=== PATIENT | male | born 1970 ===

== ENCOUNTER 2023-08-23 14:51 | Outpatient (AMB) | payer OTHER, SELFPAY ==
[2023-08-23 14:56] VITALS: BP 130/78; PULSE 70; RESP 13; TEMP 36.3; O2SAT 99; BMI 43.0
--- NOTE | 2023-08-23 14:56 | MHC.PC.OV ---
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 Patient's states that there are spots on back that may be concerning. Patient is interested in weight loss. Patient states he would like a new Epi-pen prescribed. 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 SurgHx: R 5th fingertip traumatic Amp, R meniscus. FHx: Brother: DM, Dad: CAD, CHF, Mesothelioma. Mom: CAD SocHx:Nonsmoker. EtOH once a week. [facility] Medical History (Updated 08/23/23 @ 16:08 by Baltazar Abarca) History of shingles Swelling Tear meniscus knee Surgical History (Updated 08/23/23 @ 15:08 by Tawana Javier MA) H/O right knee surgery Family History (Updated 08/23/23 @ 15:10 by Tawana Javier MA) Father Cardiovascular disease Alcoholism Mother Cardiovascular disease Family/Other Diabetes Social History Housing: House Patient Tobacco Use Status: Never used Tobacco e-Cigarette/Vaping Use: Never Used service: No Current occupational status: employed Current occupation: [employer] Cognitive needs: No Hearing needs: No Vision needs: No Questionnaire PHQ-9 Over the last 2 weeks, how often have you been bothered by any of the following problems? 1. Little interest or pleasure in doing things: not at all 2. Feeling down, depressed, or hopeless: several days 3. Trouble falling or staying asleep, or sleeping too much: several days 4. Feeling tired or having little energy: several days 5. Poor appetite or overeating: several days 6. Feeling bad about yourself - or that you are a failure or have let yourself or your family down: several days 7. Trouble concentrating on things, such as reading the newspaper or watching television: not at all 8. Moving or speaking so slowly that other people could have noticed. Or the opposite - being so fidgety or restless that you have been moving around a lot more than usual: not at all 9. Thoughts that you would be better off or of hurting yourself in some way: not at all Total score: 5 Depression Screening Interpretation: Positive Depression Screening Done: Yes 62219 - PHQ-9 Billing: Yes Source: Developed by Drs. Eagle Lemus, Reena Villalobos, Jesus Trivedi and colleagues, with an educational temitope from [employer]. Thrive Questionnaire I am a: Patient What is your living situation today?: I have a steady place to live Within the past 12 months, did the food you bought not last and you didn't have the money to get more?: Never true Within the past 12 months, did you worry whether your food would run out before you got money to buy more?: Never true Do you have trouble paying for medicines?: No Do you have trouble getting transportation to medical appointments?: No Do you have trouble paying your heating and electricity bill?: No Do you have trouble taking care of your child, family member or friend?: No Do you have trouble with day-to-day activities such as bathing, preparing meals, shopping, managing finances, etc.?: No Are you currently unemployed and looking for a job?: No Are you interested in more education?: No Please select the resources that you would like help with: None Currently or been in a relationship where the following occur: no concerns reported AUDIT C Alcohol Use Questionnaire (AUDIT-C) 1. How often do you have a drink containing alcohol?: Monthly or less 2. How many drinks containing alcohol do you have on a typical day when you are drinking?: 1 or 2 3. How often do you have six or more drinks on one occasion?: Never Total Score: 1 CABRERA-7 AMB Questionnaire CABRERA-7 Date CABRERA - 7 assessed: 08/23/23 Feeling nervous, anxious, or on edge: 0 = Not at all Not being able to stop or control worryin = Not at all Worrying too much about different things: 0 = Not at all Trouble relaxin = Not at all Being so restless that it is hard to sit still: 0 = Not at all Becoming easily annoyed or irritable: 0 = Not at all Feeling afraid as if something awful might happen: 0 = Not at all Total CABRERA-7 score (0-4 normal; 5-9 mild; 10-14 moderate; 15-21 severe): 0 Source: Developed by Drs. Eagle Lemus, Reena Villalobos, Jesus Trivedi and colleagues, with an educational temitope from [employer]. Review of Systems Const Denies chills, Denies fatigue, Denies fever(s), Denies headache(s) and Denies weakness ENT Denies dizziness and Denies headache(s) Card Denies chest pain, Denies lightheadedness, Denies dyspnea and Denies other (Palpitations) Resp Denies cough, Denies dyspnea, Denies wheezing and Denies other ( shortness of breath) Musc Denies numbness and Denies tingling Neuro Denies dizziness, Denies headache(s), Denies numbness, Denies tingling, Denies paresthesias and Denies weakness Psych Denies anxiety and Denies depression Endo Denies fatigue Aller/Immun Denies wheezing Physical exam (Primary Care) Vital Signs: Last Vital Signs Temp 97.4 F 08/23/23 14:56 Pulse 70 08/23/23 14:56 Resp 13 08/23/23 14:56 BP 130/78 08/23/23 14:56 Pulse Ox 99 08/23/23 14:56 Oxygen Delivery Method Room Air 08/23/23 14:56 BMI result Body Mass Index 43.0 Tobacco/Smoking Status: Tobacco use Status Tobacco use date assessed 08/23/23 08/23/23 15:05 Patient Tobacco Use Status Never used Tobacco 08/23/23 15:05 e-Cigarette/Vaping Use Never Used 08/23/23 15:05 PHQ-9: PHQ-9 Score PHQ-9: Total score 5 08/23/23 15:42 Depression Screening Interpretation: Positive Currently or been in a relationship where the following occur: no concerns reported Const General: no acute distress and well developed Nutritional Appearance: well nourished Orientation/consciousness: patient oriented x3 HENMT Head: Yes normocephalic and Yes atraumatic Eyes General: appearance normal, both eyes and all related structures Pupils: Equal, round and reactive pupils present EOM: EOMs intact bilaterally Resp Effort & Inspection: normal respiratory effort Auscultation: clear to auscultation bilaterally Cardio Rate: regular rate Rhythm: regular rhythm Heart sounds: S1 normal heart sound present, S2 normal heart sound present, no gallops, no murmurs and no rubs Neuro General: patient oriented x3 and gait normal Cranial nerves: Yes Equal, round and reactive pupils present Psych Affect: normal affect Assessment and Plan Assessment & Plan (1) Morbid obesity: Code(s): E66.01 - Morbid (severe) obesity due to excess calories Plan: Will?refer?to?medical?weight?management (2) Sleep apnea: Code(s): G47.30 - Sleep apnea, unspecified Plan: Referred?to?Sleep?Medicine (3) Family history of coronary artery disease: Code(s): Z82.49 - Family history of ischemic heart disease and other diseases of the circulatory system Plan: Strong?family?history?of?coronary?artery?disease Checking?EKG?at?his?next?visit?for?baseline Encouraged?weight?loss Check?lab (4) Neoplasm of uncertain behavior of skin: Code(s): D48.5 - Neoplasm of uncertain behavior of skin Plan: Referred?to?dermatology (5) Screening for colon cancer: Code(s): Z12.11 - Encounter for screening for malignant neoplasm of colon Plan: Patient?had?a?colonoscopy?and?says?he?is?due?for?follow-up Referred?to?GI (6) Laboratory exam ordered as part of routine general medical examination: Code(s): Z00.00 - Encounter for general adult medical examination without abnormal findings Plan: Check?lab Orders: Orders Comprehensive [place]. Panel Fast Today Z00.00 - Encounter for general adult medical examination without abnormal findings Microalbumin, Random (w Creat) Today I10 - Essential (primary) hypertension Lipid Panel Today Z00.00 - Encounter for general adult medical examination without abnormal findings Prostate Specific Antigen Scr Today Z12.5 - Encounter for screening for malignant neoplasm of prostate AMB EKG-In Office Today E66.01 - Morbid (severe) obesity due to excess calories, G47.30 - Sleep apnea, unspecified, Z00.00 - Encounter for general adult medical examination without abnormal findings TSH reflex Free T4 Today Z00.00 - Encounter for general adult medical examination without abnormal findings UA and rflx microscopic Today Z00.00 - Encounter for general adult medical examination without abnormal findings Referrals Sleep Medicine Referral E66.01 - Morbid (severe) obesity due to excess calories, G47.30 - Sleep apnea, unspecified Gastroenterology Referral Z12.11 - Encounter for screening for malignant neoplasm of colon Dermatology Referral D48.5 - Neoplasm of uncertain behavior of skin Medical Weight Management Referral E66.01 - Morbid (severe) obesity due to excess calories Medications: New epinephrine (EpiPen 2-Melvin) 0.3 mg (0.3 mL) IM Q4H 30 days PRN 2 ea 2RF anaphylaxis Coding Level of Care Code New Pt Level 4 (69716) Diagnoses Morbid obesity E66.01 Sleep apnea G47.30 Family history of coronary artery disease Z82.49 Neoplasm of uncertain behavior of skin D48.5 Screening for colon cancer Z12.11 Laboratory exam ordered as part of routine general medical examination Z00.00
== END 2023-08-23 16:14 | disposition home or self-care (01) ==
PROVIDERS: PCP Pediatrics; Visit Provider Family Medicine
DX: G47.30 Sleep apnea, unspecified (principal); E66.01 Morbid (severe) obesity due to excess calories; Z68.41 Body mass index [BMI] 40.0-44.9, adult; Z82.49 Family history of ischemic heart disease and other diseases of the circulatory system; D48.5 Neoplasm of uncertain behavior of skin; Z12.11 Encounter for screening for malignant neoplasm of colon
CPT/HCPCS: 99204

== ENCOUNTER 2023-10-10 07:45 | Outpatient (AMB) | payer OTHER, SELFPAY ==
--- NOTE | 2023-10-10 07:51 | A.OFFVIS_ITS ---
Intake Vital Signs 10/10/23 07:52 Height 5 ft 11 in Weight 306 lb 7.08 oz BMI 42.7 BP 153/73 H Blood Pressure Location Lt brachial Position Sitting Pulse 66 Intake Visit Reasons: Colonoscopy screening Intake Note: Edouard presents in the office as a colonoscopy screening. CC: No concerns today. He states that he got a new PCP that needs new baselines for his care. He is due. Last colo in 5 years. 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 He is referred by Dejon Webb of [facility] [place] [facility]. PMX LINA Morbid obesity History of skin cancer Left knee meniscus tear * SURGICAL HISTORY Right knee meniscus surgery Colonoscopy - 2011, laurie Giron study * ALLERGIES BEE STINGS-ANAPHYLAXIS * EzLike LABS: none in our system TODAY'S VISIT He had a prior scope in [address] Giron that was negative. He denies any bowel or upper GI problems. There are no prior problems with anesthesia or sedation. He has LINA but denies other respiratory problems or cardiac problems. No ID problems. There is no known FHX of CRC or polyps. [facility] Medical History History of shingles Swelling Tear meniscus knee Surgical History Hx of colonoscopy H/O right knee surgery Family History Father Cardiovascular disease Alcoholism Mother Cardiovascular disease Family/Other Diabetes Social History Housing: House Patient Tobacco Use Status: Never used Tobacco e-Cigarette/Vaping Use: Never Used service: No Current occupational status: employed Current occupation: [employer] Cognitive needs: No Hearing needs: No Vision needs: No Review of Systems Const Denies fatigue, Denies fever(s), Denies night sweats, Denies poor appetite and Denies weight loss ENT Reports Normal hearing present, Denies dental pain, Denies dysphagia, Denies hearing loss, Denies mouth pain, Denies odynophagia, Denies throat swelling, Denies tongue swelling and Reports other (Dentition adequate) Card Reports no additional complaints Resp Reports no additional complaints GI Denies abdominal pain, Denies melena, Denies bloating, Denies hematochezia, Denies constipation, Denies GI cramping, Denies dysphagia, Denies excessive flatus, Denies early satiety, Denies heartburn, Denies diarrhea, Denies nausea, Denies odynophagia, Denies vomiting and Denies hematemesis Skin/Breast Denies pruritus, Denies lesions, Denies rash and Denies jaundice Neuro Reports Normal hearing present and Denies Abnormal speech present Endo Denies fatigue Aller/Immun Denies throat swelling and Denies tongue swelling Physical Exam Vital Signs: Last Vital Signs Pulse 66 10/10/23 07:52 BP 153/73 H 10/10/23 07:52 BMI result Body Mass Index 42.7 Const General: cooperative, no acute distress, well developed and well groomed Nutritional Appearance: well nourished and obese Orientation/consciousness: oriented to person, oriented to place and oriented to time Limitations: No language barrier HEENT Head: Yes normocephalic and Yes atraumatic Eyes General: appearance normal, both eyes and all related structures Pupils: Equal, round and reactive pupils present Neck Neck: Yes normal visual inspection and Yes no lymphadenopathy Thyroid: Thyroid normal Resp Effort & Inspection: normal respiratory effort and able to speak in complete sentences Auscultation: clear to auscultation bilaterally Cardio Rate: regular rate Rhythm: regular rhythm Heart sounds: Normal, physiologic split S2 sound present Peripheral pulses: radial pulses present and posterior tibial pulses present GI Inspection: No distended, Yes Abdominal panniculus present and Yes obesity Palpation (GI): Soft to palpation, nontender, no guarding, not rigid and No hepatosplenomegaly present Percussion: Yes normal to percussion Auscultation: normal bowel sounds Rectal Exam - Male: Yes deferred Skin General skin exam: no rashes or lesions noted, turgor normal, skin not dry, no jaundice, No spider nevi and no striae Rashes: no rashes Nails: normal Neuro General: oriented to person, oriented to place and oriented to time Cranial nerves: Yes Equal, round and reactive pupils present and Yes Normal hearing present Speech: No Abnormal speech present Extrem General: Yes normal to inspection, No clubbing, No cyanosis and No edema Psych Appearance: grossly normal and well kempt Mental Status: mental status grossly normal Speech and movement: Normal speech and movement present Affect: normal affect Attitude: cooperative Thought process: Normal thought process present and not confabulating Thought content: Normal thought content present Insight: Fair insight present (Psych) Judgement: Fair judgement present (Psych) Assessment & Plan Assessment & Plan (1) Pre-op examination: Code(s): Z01.818 - Encounter for other preprocedural examination (2) Morbid obesity: Code(s): E66.01 - Morbid (severe) obesity due to excess calories (3) Sleep apnea: Code(s): G47.30 - Sleep apnea, unspecified Plan He had a prior [place] [address] Giron that was negative. He denies any bowel or upper GI problems. There are no prior problems with anesthesia or sedation. He has LINA but denies other respiratory problems or cardiac problems. No ID problems. There is no known FHX of CRC or polyps. Orders: Orders Comprehensive [place]. Panel Fast 08/23/23 Z00.00 - Encounter for general adult medical examination without abnormal findings Complete Blood Count Auto Diff Today E66.01 - Morbid (severe) obesity due to excess calories, Z01.818 - Encounter for other preprocedural examination Colonoscopy - GI Use Only Today Z01.818 - Encounter for other preprocedural examination Medications: New peg 3350-electrolytes 236-22.74-6.74 -5.86 gram (Golytely) until fecal effluent is clear; do not exceed a total volume of 2,000 mL 240 mL PO Q10M 1 day 4,000 mL 0RF Z12.11 - Encounter for screening for malignant neoplasm of colon bisacodyl (Dulcolax (bisacodyl)) 10 mg (2 x 5 mg) PO BEDTIME 2 days 4 tabs 0RF Coding Level of Care Code New Pt Level 3 (83250) Diagnoses Pre-op examination Z01.818 Morbid obesity E66.01 Sleep apnea G47.30
[2023-10-10 07:52] VITALS: BP 153/73; PULSE 66; BMI 42.7
== END 2023-10-10 08:34 | disposition home or self-care (01) ==
PROVIDERS: PCP Family Medicine; Visit Provider Nurse Practitioner
DX: Z01.818 Encounter for other preprocedural examination (principal); Z12.11 Encounter for screening for malignant neoplasm of colon; E66.01 Morbid (severe) obesity due to excess calories; G47.33 Obstructive sleep apnea (adult) (pediatric)
CPT/HCPCS: S0285

== ENCOUNTER → 2023-10-10 07:45 | Outpatient (BNVA) | payer OTHER, SELFPAY | PROVIDERS: PCP Family Medicine; Visit Provider Nurse Practitioner ==

== ENCOUNTER 2023-10-30 11:57 | Outpatient (AMB) | payer OTHER, SELFPAY ==
--- NOTE | 2023-10-30 12:10 | MHC.OFFVIS ---
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 needs new machine Allergies bee stings Allergy (Severe, Uncoded 10/10/23 07:54) Anaphylaxis HPI HPI Comments History of Present Illness Details 53 y/o male patient presents for new in-person visit to manage sleep apnea. He was diagnosed with LINA more than 5 years ago, and has been using CPAP. He was told that his sleep study result was significant for a severe degree of sleep apnea. AHI was over 150/hr and underwent spilt night sleep study done. However, he does not know what current his CPAP pressure. He thinks that he lost about 30 lb since the last sleep study. He got a message from his CPAP says motor life exceeded, and he needs new CPAP. His home care company is [employer] He uses CPAP nighlty, and sleeps well with it. He used to doze off during daytime, but the excessive daytime sleepiness has resolved with using CPAP. Sleep questionnaire: Have you ever been diagnosed with a sleep disorder? LINA. Have you ever had a sleep study in the past? Yes. Have you ever been treated for a sleep disorder? Yes, CPAP. Do you take medications for a sleep disorder? No. Do you snore? Yes withou CPAP. Do you wake up gasping at night? No. Do you have episodes of apneas? Yes. If yes, are they witnessed? Yes. Do you have episodes of nocturnal chest pain or dyspnea? No. Do you have difficulty initiating sleep? Yes, sometimes and practicing 4-7-8 breathing, and it works. Do you have difficulty maintaining sleep? No. Do you wake up tired? No. Do you have headaches upon awakening? Yes, sometimes. Do you wake up with dry mouth or throat? Yes, sometimes. Do you have GERD? No. Do you have nocturia? Yes. Do you have nocturnal leg cramps? No. Do you have symptoms of restless legs? No. Do you act out your dreams? No. Sleep hygiene questionnaire: What is your usual sleep routine? Usual bedtime is at 11 pm; Usual wake up time is at 5:30 am. Do you take naps? No. Is your sleep environment cool, dark, and quiet? Yes. Do you exercise? Yes, just started. Do you take caffeine or other stimulants? Coffee in the morning, sometimes in the afterron. Do you use electronics in bed? No. What is your work schedule? 7:30 am-3:30 pm. Hypersomnolence questionnaire: Do you have daytime tiredness or fatigue? No. Do you easily fall asleep when inactive? No. Have you ever had episodes of sudden weakness? No. Have you ever had episodes of sudden weakness associated with strong emotions? No. PFSH Medical History History of shingles Swelling Tear meniscus knee Surgical History Hx of colonoscopy H/O right knee surgery Family History Father Cardiovascular disease Alcoholism Mother Cardiovascular disease Family/Other Diabetes Social History Housing: House Patient Tobacco Use Status: Never used Tobacco e-Cigarette/Vaping Use: Never Used service: No Current occupational status: employed Current occupation: [employer] Cognitive needs: No Hearing needs: No Vision needs: No Review of Systems Const All systems reviewed & are unremarkable except as noted in HPI and below Physical Exam Vital Signs: Last Vital Signs Pulse 71 10/30/23 12:14 BP 140/90 H 10/30/23 12:14 Pulse Ox 98 10/30/23 12:14 Oxygen Delivery Method Room Air 10/30/23 12:14 BMI result Body Mass Index 43.8 Const General: cooperative Nutritional Appearance: obese Orientation/consciousness: patient oriented x3 Neck Neck: Yes full ROM Resp Effort & Inspection: normal respiratory effort and able to speak in complete sentences Neuro General: patient oriented x3 and gait normal Cranial nerves: Yes CN's II-XII intact bilaterally Motor exam (neuro): 5/5 motor strength present throughout and Pronator motor function not present Psych Appearance: grossly normal Mental Status: mental status grossly normal Speech and movement: Normal speech and movement present Affect: normal affect Attitude: cooperative Assessment & Plan Assessment & Plan (1) Sleep apnea: Comment: Hx of severe degree of sleep apnea. The AHI was over 150/hr and is on CPAP. Code(s): G47.30 - Sleep apnea, unspecified Plan Pt is advised to undergo in lab sleep study to assess for sleep apnea. Will f/u with pt after study to discuss results and appropriate treatment options. Wt reduction advised. Pt to call with any worsening concerns or questions. Orders: Orders RT PSG in-lab sleep study Today E66.01 - Morbid (severe) obesity due to excess calories, G47.30 - Sleep apnea, unspecified Coding Level of Care Code New Pt Level 3 (46435) Diagnoses Sleep apnea G47.30
[2023-10-30 12:14] VITALS: BP 140/90; PULSE 71; O2SAT 98; BMI 43.8
== END 2023-10-30 12:35 | disposition home or self-care (01) ==
PROVIDERS: PCP Family Medicine; Visit Provider Nurse Practitioner Family
DX: G47.30 Sleep apnea, unspecified (principal)
CPT/HCPCS: 99203

== ENCOUNTER → 2023-10-30 11:57 | Outpatient (BNVA) | payer OTHER, SELFPAY | PROVIDERS: PCP Family Medicine; Visit Provider Nurse Practitioner Family ==

== ENCOUNTER → 2023-11-25 20:30 | Outpatient (REF) | payer OTHER, SELFPAY | LOC: HO.SL 20:30 | PROVIDERS: PCP Family Medicine; Visit Provider Nurse Practitioner Family | DX: G47.33 Obstructive sleep apnea (adult) (pediatric) (principal); E66.01 Morbid (severe) obesity due to excess calories | CPT/HCPCS: 95810 ==

== ENCOUNTER → 2023-11-25 23:56 | Outpatient (BNV) | payer OTHER, SELFPAY | PROVIDERS: PCP Family Medicine; Visit Provider Psychiatry & Neurology Neurology | DX: G47.33 Obstructive sleep apnea (adult) (pediatric) (principal) | CPT/HCPCS: 95810 ==

== ENCOUNTER 2024-02-14 06:24 | Day surgery (SDC) | payer OTHER, SELFPAY ==
--- NOTE | 2024-02-13 08:21 | P.CONAN_ITS ---
Documented by User: Herminia Madrigal NP 02/13/24 08:22 HPI - Anesthesia Eval Consult details Narrative: 53yo M for Colonoscopy PMFSH Active Problems Active Problems: All Active Problems Pre-op examination (Acute) Screening for colon cancer (Acute) Neoplasm of uncertain behavior of skin (Acute) Family history of coronary artery disease (Acute) Morbid obesity (Acute) Laboratory exam ordered as part of routine general medical examination (Acute) Sleep apnea (Acute) Past Medical History Medical History Sleep apnea History of shingles Swelling Tear meniscus knee Family History Family History Father Cardiovascular disease Alcoholism Mother Cardiovascular disease Family/Other Diabetes Surgical History Surgical History Hx of colonoscopy H/O right knee surgery Social History Social History Housing: House Patient Tobacco Use Status: Never used Tobacco e-Cigarette/Vaping Use: Never Used Use of substances other than those prescribed or required for medical reasons: Yes Substance Use Type Other:: gummies Substance Use Frequency: Occasionally Are you DNR?: No Advance Directives: No Advance Directives Information Provided: Yes service: No Current occupational status: employed Current occupation: [employer] Cognitive needs: No Hearing needs: No Vision needs: No Meds Allergies Allergy/AdvReac Type Severity Reaction Status Date / Time bee stings Allergy Severe Anaphylaxis Uncoded 02/14/24 06:39 Assessment and Plan Assessment Anesthesia Assessment: Chart Reviewed Documented by User: Chiara Rodrigues MD 02/14/24 07:51 PMFSH Past Medical History Medical History Sleep apnea History of shingles Swelling Tear meniscus knee Family History Family History Father Cardiovascular disease Alcoholism Mother Cardiovascular disease Family/Other Diabetes Family history of problems with anesthesia: No Surgical History Surgical History Hx of colonoscopy H/O right knee surgery History of Problems with Anesthesia: No Social History Social History Housing: House Patient Tobacco Use Status: Never used Tobacco e-Cigarette/Vaping Use: Never Used Use of substances other than those prescribed or required for medical reasons: Yes Substance Use Type Other:: gummies Substance Use Frequency: Occasionally Are you DNR?: No Advance Directives: No Advance Directives Information Provided: Yes service: No Current occupational status: employed Current occupation: [employer] Cognitive needs: No Hearing needs: No Vision needs: No Meds Allergies Allergy/AdvReac Type Severity Reaction Status Date / Time bee stings Allergy Severe Anaphylaxis Uncoded 02/14/24 06:39 Exam Height,Weight and Vital Signs: Height 6 ft Weight 130.181 kg Vital Signs Temp Pulse Resp BP Pulse Ox O2 Del Method 02/14/24 06:55 96.9 F 56 15 119/68 94 Room Air Airway Mallampati Class: III TM Dist: >3cm Neck ROM: Full Loose/Missing/Broken Teeth: Yes (Extracted tooth top Right back. Denies broken, loose teeth) Heart: RRR Lungs: CTAB Assessment and Plan Assessment Anesthesia Assessment: Anesthesia Plan Discussed and Chart Reviewed Final Anesthetic Review Family History of Problems with Anesthesia: No History of Problems with Anesthesia: No NPO: Yes ASA Class: III Final Preanesthetic Review: No Changes in Pt Med Stat, Meds/Allgs Chart Reviewed, Consent Obtained/Reviewed and Anes Risks/Benef Reviewed Patient Risk: Intermediate Procedure Risk: Low Assessment/Block/Sedation in SS: Assess/Block/Sedation-SS Anesthetic Plan Anesthetic Plan: TIVA Disposition: Standard PACU
--- NOTE | 2024-02-14 05:56 | MHC.SHP ---
Pre-Procedural Eval Section A - 24 Hr Update-Section A only Date of Service: 02/14/24 Section B - Complete if H&P > 30 days Chief Complaint: Encounter for screening for malignant neoplasm of Relevant Family History (Specify if Yes): No Relevant Social History: None Present Medications: see Short Stay Collaborative assessment Medical History: Significant History (History of shingles Swelling Tear meniscus knee) History of Previous Operations: Relevant previous surgery/procedure and date(s) (Hx of colonoscopy H/O right knee surgery) Allergies: Allergies Allergy/AdvReac Type Severity Reaction Status Date / Time bee stings Allergy Severe Anaphylaxis Uncoded 10/10/23 07:54 Review of Systems Sugical H&P ROS: Negative: Constitution, Cardiovascular, Respiratory, Neurological, Psychiatric, Hem-Onc, Allergic/Immunologic, Gastrointestinal, Genitourinary, Musculoskeletal, Integumentary, Endocrine and Eyes/Ears/Nose/Throat Exam Surgical H&P Exam: Normal: HEENT, Normal: Heart, Normal: Lungs, Normal: Extremities, Normal: Abdomen, Normal: Skin and Normal: Neurological Plan Diagnosis/Plan: Unchanged I have reviewed the history and physical and performed a pertinent physical examination on my patient. No changes have occurred unless specified. Time Spent With Patient Time: Total time managing care of this patient today ____ minutes.
[2024-02-14 06:51] VITALS: BMI 38.9
[2024-02-14 06:55] VITALS: BP 119/68; PULSE 56; RESP 15; TEMP 36.1; O2SAT 94
[2024-02-14] MEDS: Lactated Ringers 1,000 ML 100 ML IVCONT (07:07)
--- NOTE | 2024-02-14 07:36 | HO.OPN-COLON ---
Colonoscopy Operative Note Operative Note Date of Service: 02/14/24 Narrative: Operative Information Procedure Description: Colonoscopy Indication: screening Anesthesia: MAC COLONOSCOPY Instrument: Olympus variable stiffness pediatric scope 190L Colonoscopy Monitoring: Vital signs and clinical assessment, continuous EKG monitoring, Pulse oximetry, Carbon Dioxide monitoring and blood pressure monitoring were done throughout the procedure. Colon withdrawal time was 6 minutes. Procedure: The patient was placed in the left lateral decubitis position and pre-procedure medications were administered. After a digital rectal examination of the ano-rectum, the video colonoscope was inserted into the rectum and advanced through the colon to the cecum/TI. The colonoscope was slowly withdrawn in a retrograde panoramic fashion and the colon mucosa was carefully examined including a retroflexed view of the rectum. Findings and interventions are described below. Procedure Difficulty: easy Findings: Terminal Ileum-normal Cecum:normal rigth sided retroflexion- normal Ascending Colon: normal Transverse Colon -normal Descending Colon:normal Sigmoid Colon: normal Rectum: Retroflexion with medium sized internal hemorrhoids seen, grade I Anorectum - normal Intervention: none Colon preparation: [place] Bowel Preparation Scale Right colon; 3 Transverse colon: 3 Left colon; 3 (0 = Unprepared colon segment with mucosa not seen due to solid stool that cannot be cleared. 1 = Portion of mucosa of the colon segment seen, but other areas of the colon segment not well seen due to staining, residual stool and/or opaque liquid. 2 = Minor amount of residual staining, small fragments of stool and/or opaque liquid, but mucosa of colon segment seen well. 3 = Entire mucosa of colon segment seen well with no residual staining, small fragments of stool or opaque liquid) Impression and Post Procedure Diagnosis: internal hemorrhoids Plan: High fiber diet leaflet Avoid straining at stool, epsom salts and sitz bath, anusol supps or cream Repeat Colonoscopy in 10 years or earlier if clinically indicated Above findings were reviewed with the patient and relevant handouts were provided if indicated.
[2024-02-14 08:00] VITALS: BP 120/67; PULSE 57; RESP 12; TEMP 36.1; O2SAT 98
[2024-02-14 08:15] VITALS: BP 117/68; PULSE 55; RESP 16; O2SAT 98
== END 2024-02-14 09:05 | disposition home or self-care (01) ==
PROVIDERS: PCP Family Medicine; Visit Provider Internal Medicine Gastroenterology
PROC: 0DJD8ZZ Inspection of Lower Intestinal Tract, Via Natural or Artificial Opening Endoscopic (ICD-10-PCS; CPT 45378; principal; 2024-02-14 07:30)
DX: Z12.11 Encounter for screening for malignant neoplasm of colon (principal); K64.0 First degree hemorrhoids; G47.30 Sleep apnea, unspecified
CPT/HCPCS: 45378; J2704

== ENCOUNTER → 2024-02-14 06:24 | Outpatient (BNV) | payer OTHER, SELFPAY | PROVIDERS: PCP Family Medicine; Visit Provider Internal Medicine Gastroenterology | DX: Z12.11 Encounter for screening for malignant neoplasm of colon (principal); K64.0 First degree hemorrhoids | CPT/HCPCS: 45378 ==

== ENCOUNTER 2024-02-28 08:44 | Outpatient (AMB) | payer OTHER, SELFPAY ==
--- NOTE | 2024-02-28 08:47 | MHC.PC.OV ---
Vital Signs 02/28/24 08:49 Height 6 ft Weight 282 lb 9 oz BMI 38.3 BP 118/76 Blood Pressure Location Lt brachial Position Sitting Pulse 67 Pulse Source Pulse Oximeter Pulse Oximetry (%) 97 Oxygen Delivery Method Room Air Intake Visit Reasons: CPE with f/u labs and health maintenance Intake Note: Patient is here for his physical today. Patient would like a refill of his epipen. Allergies bee stings Allergy (Severe, Uncoded 02/28/24 08:50) Anaphylaxis Medication List - Last Reconciled 02/28/24 by Dejon Webb MD epinephrine (EpiPen 2-Melvin) 0.3 mg (0.3 mL) IM Q4H PRN 30 days Tobacco use date assessed: 02/28/24 Dental Screening Dental Screen Date: 08/23/23 HPI CPE with f/u labs and health maintenance HPI Details 53 y/o male presents for a CPE with f/u labs and health maintenance. No recent labs to review. HPI Comments History of Present Illness Details Documentation assistance for Dejon Webb MD, was provided by Baltazar Abarca, [employer] on 02/28/2024 at 9:26 AM EST. I, Dr. Webb, have read, observed, and verified documentation. [facility] Medical History Sleep apnea History of shingles Swelling Tear meniscus knee Surgical History Hx of colonoscopy H/O right knee surgery Family History (Updated 02/28/24 @ 08:53 by Linda Joel CMA) Father Cardiovascular disease Alcoholism Substance abuse Mother Cardiovascular disease Family/Other Diabetes Social History Housing: House Patient Tobacco Use Status: Never used Tobacco e-Cigarette/Vaping Use: Never Used service: No Current occupational status: employed Current occupation: [employer] Cognitive needs: No Hearing needs: No Vision needs: No Questionnaire CABRERA-7 AMB Questionnaire CABRERA-7 Date CABRERA - 7 assessed: 08/23/23 Source: Developed by Drs. Eagle Lemus, Reena Villalobos, Jesus Trivedi and colleagues, with an educational temitope from [employer] Review of Systems Const Denies chills, Denies fatigue, Denies fever(s), Denies headache(s) and Denies weakness Eyes Denies change in vision ENT Denies dizziness, Denies headache(s), Denies hearing loss, Denies nasal congestion, Denies sinus pain, Denies sinus pressure and Denies sore throat Card Denies chest pain, Denies lightheadedness, Denies dyspnea and Denies other (palpitations) Resp Denies cough, Denies dyspnea and Denies wheezing GI Denies abdominal pain, Denies melena, Denies hematochezia, Denies change in bowel habits, Denies dyspepsia and Denies nausea Denies hematuria and Denies dysuria Musc Denies abnormal gait, Denies myalgias, Denies arthralgias, Denies numbness and Denies tingling Skin/Breast Denies rash, Denies unusual bruising and Denies wounds Neuro Denies abnormal gait, Denies dizziness, Denies headache(s), Denies memory loss, Denies numbness, Denies Sensory deficit (Neuro), Denies tingling and Denies weakness Psych Denies anxiety, Denies depression and Denies memory loss Endo Denies cold intolerance, Denies fatigue, Denies heat intolerance, Denies polydipsia and Denies polyuria Jacques/Lymph Denies easy bleeding and Denies easy bruising Aller/Immun Denies wheezing Physical exam (Primary Care) Vital Signs: Last Vital Signs Pulse 67 02/28/24 08:49 BP 118/76 02/28/24 08:49 Pulse Ox 97 02/28/24 08:49 Oxygen Delivery Method Room Air 02/28/24 08:49 BMI result Body Mass Index 38.3 Tobacco/Smoking Status: Tobacco use Status Tobacco use date assessed 02/28/24 02/28/24 08:56 Patient Tobacco Use Status Never used Tobacco 02/28/24 08:47 e-Cigarette/Vaping Use Never Used 02/28/24 08:47 Const General: no acute distress, well developed, alert and awake Nutritional Appearance: well nourished Orientation/consciousness: patient oriented x3 HENMT Head: Yes normocephalic and Yes atraumatic Ears: hearing grossly normal bilaterally and TM's normal bilaterally General nose exam: Normal external nose present and Normal nares present Mouth: Normal oral and palatal mucosa present and moist mucous membranes Teeth and gingiva: dentition normal Throat: Yes posterior oropharynx normal Eyes General: appearance normal, both eyes and all related structures Pupils: Equal, round and reactive pupils present and Pupil accommodation reflex normal EOM: EOMs intact bilaterally Neck Neck: Yes normal visual inspection, Yes no lymphadenopathy and Yes trachea midline Thyroid: Thyroid normal Carotids: no bruits Lymphatic: no lymphadenopathy noted Chest Chest palpation & inspection: normal inspection of the chest Resp Effort & Inspection: normal respiratory effort Auscultation: clear to auscultation bilaterally Cardio Rate: regular rate Rhythm: regular rhythm Heart sounds: S1 normal heart sound present, S2 normal heart sound present, no gallops, no murmurs and no rubs Bruits: no abdominal aortic bruits and no carotid bruits GI Palpation (GI): No Abdominal aortic bruit present, Soft to palpation, nontender, No hepatosplenomegaly present and No Rebound tenderness present Auscultation: normal bowel sounds General: Yes no CVA tenderness Back/Spine/Pelvis Back: no CVA tenderness Cervical Spine: cervical ROM normal and No Cervical spine tenderness Thoracic/Lumbar Spine: thoraco-lumbar ROM normal, No pain with thoraco-lumbar ROM, No thoracic spinal tenderness and No lumbar spinal tenderness Skin Lesions: no lesions Rashes: no rashes Trauma: no lacerations or abrasions Wounds: no wounds Nails: normal Neuro General: patient oriented x3 Cranial nerves: Yes Equal, round and reactive pupils present Cognition (Neuro): normal cognition Gait exam (Neuro): Normal gait present Motor exam (neuro): 5/5 motor strength present throughout Sensory Exam: No Sensory deficit (Neuro) Deep tendon reflexes (DTR's): Right patellar reflex intensity grade: 2+ and Left patellar reflex intensity grade: 2+ Extrem General: Yes normal to inspection and No edema Psych Appearance: grossly normal Affect: normal affect Attitude: cooperative Thought process: Normal thought process present Assessment and Plan Assessment & Plan (1) Adult general medical exam: Code(s): Z00.00 - Encounter for general adult medical examination without abnormal findings Plan: 53-year-old?male?presents?for?complete?physical?exam Congratulated?patient?on?significant?weight?loss?and?encouraged?more (2) Family history of coronary artery disease: Code(s): Z82.49 - Family history of ischemic heart disease and other diseases of the circulatory system Plan: Strong?family?history?of?coronary?artery?disease?and?morbid?obesity EKG?shows?normal?sinus?rhythm?with?normal?axis,?normal?intervals,?no?hypertrophy,?no?ST-T-wave?changes (3) Obesity (BMI 30-39.9): Code(s): E66.9 - Obesity, unspecified Plan: As?above,?patient?has?been?working?on?weight?loss?and?I?congratulated?him (4) Screening for colon cancer: Code(s): Z12.11 - Encounter for screening for malignant neoplasm of colon Plan: Recent?colonoscopy?which?was?normal?and?advised?10?year?follow-up (5) Screening for prostate cancer: Code(s): Z12.5 - Encounter for screening for malignant neoplasm of prostate Plan: Check?PSA Medications: Refilled epinephrine (EpiPen 2-Melvin) 0.3 mg (0.3 mL) IM Q4H 30 days PRN 2 ea 2RF anaphylaxis Coding Level of Care Code Est Pt Level 3 (23158) Est Pt Prev Care 40-64y(06002) Diagnoses Adult general medical exam Z00.00 Family history of coronary artery disease Z82.49 Obesity (BMI 30-39.9) E66.9 Screening for colon cancer Z12.11 Screening for prostate cancer Z12.5
[2024-02-28 08:49] VITALS: BP 118/76; PULSE 67; O2SAT 97; BMI 38.3
== END 2024-02-28 09:36 | disposition home or self-care (01) ==
PROVIDERS: PCP Family Medicine; Visit Provider Family Medicine
DX: Z00.00 Encounter for general adult medical examination without abnormal findings (principal); Z82.49 Family history of ischemic heart disease and other diseases of the circulatory system; Z68.38 Body mass index [BMI] 38.0-38.9, adult; E66.9 Obesity, unspecified; Z12.11 Encounter for screening for malignant neoplasm of colon; Z12.5 Encounter for screening for malignant neoplasm of prostate
CPT/HCPCS: 93000; 99396

== ENCOUNTER 2024-02-28 10:14 | Outpatient (REF) | payer OTHER, SELFPAY ==
[2024-02-28 11:42] LABS: MANUAL DIFF FLAG NO
[2024-02-28 11:53] LABS: Appearance Urine Clear; Color Urine Yellow; Glucose Urine UA >=1000 mg/dL (Negative); Leukocyte Esterase Urine Negative (Negative); Nitrite Urine Negative (Negative); PH 5.5 (5.0-9.0); Specific Gravity - Urine 1.025 (1.005-1.025); UMIC TRIGGER UA YES; Urine Blood Negative (Negative); Urine Ketones Negative (Negative); Urine Protein Negative (Neg-Trace)
[2024-02-28 12:02] LABS: Bacteria Urine None Seen (None Seen); Hyaline Casts Urine 0-2 /LPF (0-2); RBC Urine 0-2 /HPF (0-2); Squamous Epithelial Cell Urine 0-2 /HPF (0-2); WBC Urine 0-5 /HPF (0-5)
[2024-02-28 12:03] LABS: Basophils Absolute Auto 0.1 X10*3/uL (0.0-0.2); Basophils Percent Auto 1.2 % (0-2); Eosinophils Absolute Auto 0.4 X10*3/uL (0.0-0.4); Eosinophils Percent Auto 6.1 % (0-4); Hematocrit 44.7 % (42.0-52.0); Hemoglobin 15.5 g/dl (14.0-18.0); Imm Gran Abs Auto 0.03 X10*3/uL (0.00-0.03); Imm Gran Pct Auto 0.4 % (0.0-0.4); Lymphocytes Absolute Auto 1.7 X10*3/uL (1.2-4.9); Mean Corpuscular HGB Conc 34.7 g/dl (31.0-36.0); Mean Corpuscular Volume 86.6 fL (80.0-98.0); Mean Platelet Volume 9.4 fL (9.4-12.4); Monocytes Absolute Auto 0.5 X10*3/uL (0.1-1.2); Monocytes Percent Auto 6.8 % (2-11); Neutrophils Absolute Auto 4.5 x10*3/uL (2.0-8.3); Neutrophils Percent Auto 62.5 % (45-73); Platelet Count 366 X10*3/uL (160-400); Red Blood Count 5.16 X10*6/uL (4.60-5.80); Red Cell Distribution Width 12.8 % (11.0-16.0); White Blood Count 7.3 X10*3/uL (4.8-10.8)
[2024-02-28 12:26] LABS: Alanine Aminotransferase 24 U/L (0-40); Albumin Level 4.2 g/dL (3.5-5.0); Alkaline Phosphatase 68 U/L (39-117); Anion Gap 10 (12-20); Aspartate Amino Transferase 17 U/L (5-37); Bilirubin Total 0.5 mg/dL (0.0-1.0); Blood Urea Nitrogen 15 mg/dL (9-16); Calcium 9.2 mg/dL (8.4-10.2); Carbon Dioxide 28 mmol/L (22-29); Chloride 101 mmol/L (96-108); Cholesterol 226 mg/dL (<200); Estimated Glomerular Filt Rate > 60; Glucose Fasting 269 mg/dL (60-99); HDL Cholesterol 40 mg/dL (>40); LDL Cholesterol Calculated 155 mg/dL (<100); Potassium 4.1 mmol/L (3.3-5.1); Sodium 135 mmol/L (135-145); Total Protein 6.9 g/dL (6.5-8.0); Triglycerides 159 mg/dL (<150)
[2024-02-28 12:30] LABS: Creatinine Urine 120.49 mg/dL; Microalbum/Creatinine Ratio Ur 26.5 ug/mg cr (<30)
[2024-02-28 12:37] LABS: Prostate Specific Antigen Scr 0.44 ng/mL (<0.05-4.0)
[2024-02-28 12:39] LABS: TSH reflex Free T4 0.77 uIU/mL (0.32-4.0)
== END 2024-02-28 10:15 | disposition home or self-care (01) ==
LOC: HO.WFDLDS 10:14
PROVIDERS: Nurse Practitioner; Visit Provider Family Medicine
DX: Z00.00 Encounter for general adult medical examination without abnormal findings (principal); Z01.818 Encounter for other preprocedural examination; E66.01 Morbid (severe) obesity due to excess calories; Z12.5 Encounter for screening for malignant neoplasm of prostate; I10 Essential (primary) hypertension
CPT/HCPCS: 36415; 80053; 80061; 81001; 82043; 82570; 84153; 84443; 85025

== ENCOUNTER 2024-04-14 15:48 | Outpatient (AMB) | payer OTHER, SELFPAY ==
--- NOTE | 2024-04-14 15:48 | A.OFFPC_ITS ---
Intake Visit Reasons: f/u CPE-labs via telemedicine Intake Note: Edouard is a 53 year old male who presents to the office today for a f/u labs via telemedicine. Allergies bee stings Allergy (Severe, Uncoded 04/14/24 15:48) Anaphylaxis Tobacco use date assessed: 02/28/24 Dental Screening Dental Screen Date: 04/14/24 Did you have a dental visit in the last 12 months?: Yes Did you have a dental problem in the last 6 months where you did not have access to dental care?: No Was dental information given to patient?: Patient has dentist HPI f/u CPE-labs via telemedicine HPI Details 53 y/o male presents to f/u CPE-labs via telemedicine. Labs were drawn 02/28/24. Reviewed labs with pt. Elevated fasting glucose of 269. He notes he feels he had a 10 hour fast. He denies any high blood sugars in the past. Triglycerides 159. TC 226. LDL 155. HDL 40. PSA 0.44 ng/mL. PFSH Medical History Sleep apnea History of shingles Swelling Tear meniscus knee Surgical History Hx of colonoscopy H/O right knee surgery Family History Father Cardiovascular disease Alcoholism Substance abuse Mother Cardiovascular disease Family/Other Diabetes Social History Housing: House Patient Tobacco Use Status: Never used Tobacco e-Cigarette/Vaping Use: Never Used service: No Current occupational status: employed Current occupation: [email or web address] Cognitive needs: No Hearing needs: No Vision needs: No Questionnaire PHQ-9 Over the last 2 weeks, how often have you been bothered by any of the following problems? 1. Little interest or pleasure in doing things: not at all 2. Feeling down, depressed, or hopeless: not at all 3. Trouble falling or staying asleep, or sleeping too much: not at all 4. Feeling tired or having little energy: not at all 5. Poor appetite or overeating: not at all 6. Feeling bad about yourself - or that you are a failure or have let yourself or your family down: not at all 7. Trouble concentrating on things, such as reading the newspaper or watching television: not at all 8. Moving or speaking so slowly that other people could have noticed. Or the opposite - being so fidgety or restless that you have been moving around a lot more than usual: not at all 9. Thoughts that you would be better off or of hurting yourself in some way: not at all Total score: 0 Source: Developed by Drs. Eagle Lemus, Reena Villalobos, Jesus Trivedi and colleagues, with an educational temitope from [employer]. Thrive Questionnaire Date Thrive assessed: 04/14/24 I am a: Patient What is your living situation today?: I have a steady place to live Within the past 12 months, did the food you bought not last and you didn't have the money to get more?: Never true Within the past 12 months, did you worry whether your food would run out before you got money to buy more?: Never true Do you have trouble paying for medicines?: No Do you have trouble getting transportation to medical appointments?: No Do you have trouble paying your heating and electricity bill?: No Do you have trouble taking care of your child, family member or friend?: No Do you have trouble with day-to-day activities such as bathing, preparing meals, shopping, managing finances, etc.?: No Are you currently unemployed and looking for a job?: No Are you interested in more education?: No Please select the resources that you would like help with: None THRIVE Score: 0 AUDIT C Alcohol Use Questionnaire (AUDIT-C) 1. How often do you have a drink containing alcohol?: Monthly or less 2. How many drinks containing alcohol do you have on a typical day when you are drinking?: 1 or 2 3. How often do you have six or more drinks on one occasion?: Never Total Score: 1 CABRERA-7 AMB Questionnaire CABRERA-7 Date CABRERA - 7 assessed: 04/14/24 Feeling nervous, anxious, or on edge: 0 = Not at all Not being able to stop or control worryin = Not at all Worrying too much about different things: 0 = Not at all Trouble relaxin = Not at all Being so restless that it is hard to sit still: 0 = Not at all Becoming easily annoyed or irritable: 0 = Not at all Feeling afraid as if something awful might happen: 0 = Not at all Total CABRERA-7 score (0-4 normal; 5-9 mild; 10-14 moderate; 15-21 severe): 0 Source: Developed by Drs. Eagle Lemus, Reena Villalobos, Jesus Trivedi and colleagues, with an educational temitope from [employer]. Physical exam (Primary Care) Tobacco/Smoking Status: Tobacco use Status Tobacco use date assessed 02/28/24 04/14/24 15:51 Patient Tobacco Use Status Never used Tobacco 04/14/24 15:51 e-Cigarette/Vaping Use Never Used 04/14/24 15:51 PHQ-9: PHQ-9 Score PHQ-9: Total score 0 04/14/24 16:16 Thrive Assessment: Date of Thrive Assessment Date Thrive assessed 04/14/24 04/14/24 15:51 Telehealth Telehealth Telehealth Platform: Telephone Location of provider rendering services: practice address Location of patient: address on file Patient Identification confirmed using: Name, : Yes Telehealth method: voice only Patient verbally consented to treatment: Yes Patient verbally consented to billing insurance company: Yes Patient informed of any privacy concerns related to visit: Yes Minutes spent on Phone/Video with Pt.: 7 Assessment and Plan Assessment & Plan (1) Elevated fasting glucose: Code(s): R73.01 - Impaired fasting glucose Plan: Significantly?elevated?fasting?blood?sugar Patient?notes?that?he?did?have?a?good?10+?our?fast Will?have?him?repeat?fasting?blood?sugar?as?well?as?an?A1c?test. (2) Hypercholesterolemia: Code(s): E78.00 - Pure hypercholesterolemia, unspecified Plan: Triglycerides, TC?and?LDL?cholesterol?are?elevated Will?have?him?work?on?a?diet?low?in?saturated?fats?and?cholesterol.??He?continue s?to?work?on?weight?loss Will?repeat?lipids?just?prior?to?next?visit?and?follow-up Orders: Orders Hemoglobin A1c Today R73.01 - Impaired fasting glucose Comprehensive [place]. Panel Fast Today R73.01 - Impaired fasting glucose, Z00.00 - Encounter for general adult medical examination without abnormal findings Lipid Panel Today E78.00 - Pure hypercholesterolemia, unspecified, Z00.00 - Encounter for general adult medical examination without abnormal findings Coding Level of Care Code Tele Est Pt Level 2 (08334) Diagnoses Elevated fasting glucose R73.01 Hypercholesterolemia E78.00
== END 2024-04-14 16:28 | disposition home or self-care (01) ==
LOC: HO.HMGFM 15:48
PROVIDERS: PCP Family Medicine; Visit Provider Family Medicine
DX: R73.01 Impaired fasting glucose (principal); E78.00 Pure hypercholesterolemia, unspecified
CPT/HCPCS: 99441

== ENCOUNTER 2024-09-23 08:06 | Outpatient (AMB) | payer OTHER, SELFPAY ==
--- NOTE | 2024-09-23 08:16 | HO.NEPHOV ---
Vital Signs 09/23/24 08:17 09/23/24 15:25 Height 6 ft Weight 300 lb BMI 40.7 40.7 BP 150/82 H Blood Pressure Location Rt brachial Position Sitting Pulse 63 Pulse Source Pulse Oximeter Pulse Oximetry (%) 99 Oxygen Delivery Method Room Air Intake Visit Reasons: 4Month F/U Facilities Technician Required: No Accompanied by: Self / Same As Patient Allergies bee stings Allergy (Severe, Uncoded 04/14/24 15:48) Anaphylaxis HPI Comments Details: 54-yr-old male presents for follow-up visit of sleep apnea. Pt denies any significant interval medical history changes. Since the last visit, pt underwent In-lab split night PSG, baseline component of study revealed severe LINA: AHI 29/hr and REM AHI 35/HR w/ O2 angy 88 % w/ SpO2 < 88% x's 0 min, and average SpO2 91 %; Periodic limb movement of sleep (PLMS) index: 7/hr; PLMS arousal index: 0/hr. Pap titration portion of study revealed best optimization of sleep apnea and oxygenation at CPAP 8 cm H2O. Pt states he cannot sleep without his CPAP. States he is very compliant with the CPAP use, even takes it whenever he travels. Per his compliance report, he had 1 day where he uses CPAP less than 4 hours, he stated he likely fell asleep on the couch. With CPAP, denies daytime tiredness. He cleans and changes CPAP supplies routinely. He tends to use bottled water rather than distilled water in his CPAP water reservoir. [employer] [place] Compliance Report Usage 08/24/2024 - 09/22/2024 Usage days 30/30 days (100%) >= 4 hours 29 days (97%) < 4 hours 1 days (3%) Usage hours 211 hours 44 minutes Average usage (total days) 7 hours 3 minutes Average usage (days used) 7 hours 3 minutes Median usage (days used) 6 hours 55 minutes Total used hours (value since last reset - 09/22/2024) 1,848 hours AirSense 11 AutoSet Serial number [id number] Mode CPAP Set pressure 8 cmH2O EPR Fulltime EPR level 2 Therapy Leaks - L/min Median: 2.0 95th percentile: 10.5 Maximum: 16.3 Events per hour AI: 0.2 HI: 0.1 AHI: 0.3 PFSH Medical History (Updated 09/23/24 @ 15:25 by JERALD Luna) Sleep apnea Sleep apnea History of shingles Swelling Tear meniscus knee Surgical History Hx of colonoscopy H/O right knee surgery Family History Father Cardiovascular disease Alcoholism Substance abuse Mother Cardiovascular disease Family/Other Diabetes Social History Housing: House Patient Tobacco Use Status: Never used Tobacco e-Cigarette/Vaping Use: Never Used service: No Current occupational status: employed Current occupation: [employer] Cognitive needs: No Hearing needs: No Vision needs: No Physical Exam Vital Signs: Last Vital Signs Pulse 63 09/23/24 08:17 BP 150/82 H 09/23/24 08:17 Pulse Ox 99 09/23/24 08:17 Oxygen Delivery Method Room Air 09/23/24 08:17 BMI result Body Mass Index 40.7 Const General: no acute distress Orientation/consciousness: patient oriented x3 Resp Effort & Inspection: normal respiratory effort and able to speak in complete sentences Neuro General: patient oriented x3 Psych Mental Status: mental status grossly normal Speech and movement: Clear speech present Attitude: cooperative Results Reviewed Nephrology Results: Hgb 15.5 g/dl (14.0-18.0) 02/28/24 WBC 7.3 X10*3/uL (4.8-10.8) 02/28/24 Plt Count 366 X10*3/uL (160-400) 02/28/24 Sodium 135 mmol/L (135-145) 02/28/24 Potassium 4.1 mmol/L (3.3-5.1) 02/28/24 Chloride 101 mmol/L (96-108) 02/28/24 Carbon Dioxide 28 mmol/L (22-29) 02/28/24 BUN 15 mg/dL (9-16) 02/28/24 Creatinine 0.87 mg/dL (0.5-1.4) 02/28/24 Calcium 9.2 mg/dL (8.4-10.2) 02/28/24 Urine Protein Negative mg/dL (Neg-Trace) 02/28/24 Urine Creatinine 120.49 mg/dL 02/28/24 Assessment & Plan Assessment & Plan (1) Severe obstructive sleep apnea: Comment: 11/25/2023, In-lab split night PSG, baseline component of study revealed severe LINA: AHI 29/hr and REM AHI 35/HR w/ O2 angy 88 % w/ SpO2 < 88% x's 0 min, and average SpO2 91 %; Periodic limb movement of sleep (PLMS) index: 7/hr; PLMS arousal index: 0/hr. Code(s): G47.33 - Obstructive sleep apnea (adult) (pediatric) Category: Medical Plan Reviewed results of sleep study report, results c/w severe sleep apnea. Continue CPAP 8 cmH2O nightly > 4 hours, as pt continues to have good clinical effect from use. Clean CPAP machine and supplies routinely. Change CPAP supplies routinely. Pt to contact us or respiratory company with any questions or concerns. Pt to follow-up in 12 months or sooner prn. Coding Diagnoses Severe obstructive sleep apnea G47.33
[2024-09-23 08:17] VITALS: BP 150/82; PULSE 63; O2SAT 99; BMI 40.7
--- NOTE | 2024-09-23 15:22 | MHC.OFFVIS ---
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 Pt denies any significant interval medical history changes. Since the last visit, pt underwent In-lab split night PSG, baseline component of study revealed severe LINA: AHI 29/hr and REM AHI 35/HR w/ O2 angy 88 % w/ SpO2 < 88% x's 0 min, and average SpO2 91 %; Periodic limb movement of sleep (PLMS) index: 7/hr; PLMS arousal index: 0/hr. Pap titration portion of study revealed best optimization of sleep apnea and oxygenation at CPAP 8 cm H2O. Pt states he cannot sleep without his CPAP. States he is very compliant with the CPAP use, even takes it whenever he travels. Per his compliance report, he had 1 day where he uses CPAP less than 4 hours, he stated he likely fell asleep on the couch. With CPAP, denies daytime tiredness. He cleans and changes CPAP supplies routinely. He tends to use bottled water rather than distilled water in his CPAP water reservoir. [email or web address] [place] Compliance Report Usage 08/24/2024 - 09/22/2024 Usage days 30/30 days (100%) >= 4 hours 29 days (97%) < 4 hours 1 days (3%) Usage hours 211 hours 44 minutes Average usage (total days) 7 hours 3 minutes Average usage (days used) 7 hours 3 minutes Median usage (days used) 6 hours 55 minutes Total used hours (value since last reset - 09/22/2024) 1,848 hours AirSense 11 AutoSet Serial number [id number] Mode CPAP Set pressure 8 cmH2O EPR Fulltime EPR level 2 Therapy Leaks - L/min Median: 2.0 95th percentile: 10.5 Maximum: 16.3 Events per hour AI: 0.2 HI: 0.1 AHI: 0.3 PFSH Medical History (Updated 09/23/24 @ 15:25 by JERALD Luna) Sleep apnea Sleep apnea History of shingles Swelling Tear meniscus knee Surgical History Hx of colonoscopy H/O right knee surgery Family History Father Cardiovascular disease Alcoholism Substance abuse Mother Cardiovascular disease Family/Other Diabetes Social History Housing: House Patient Tobacco Use Status: Never used Tobacco e-Cigarette/Vaping Use: Never Used service: No Current occupational status: employed Current occupation: [employer] Cognitive needs: No Hearing needs: No Vision needs: No Physical Exam Vital Signs: Last Vital Signs Pulse 63 09/23/24 08:17 BP 150/82 H 09/23/24 08:17 Pulse Ox 99 09/23/24 08:17 Oxygen Delivery Method Room Air 09/23/24 08:17 BMI result Body Mass Index 40.7 Const General: no acute distress Orientation/consciousness: patient oriented x3 Resp Effort & Inspection: normal respiratory effort and able to speak in complete sentences Neuro General: patient oriented x3 Psych Mental Status: mental status grossly normal Speech and movement: Clear speech present Attitude: cooperative Assessment & Plan Assessment & Plan (1) Severe obstructive sleep apnea: Comment: 11/25/2023, In-lab split night PSG, baseline component of study revealed severe LINA: AHI 29/hr and REM AHI 35/HR w/ O2 angy 88 % w/ SpO2 < 88% x's 0 min, and average SpO2 91 %; Periodic limb movement of sleep (PLMS) index: 7/hr; PLMS arousal index: 0/hr. Code(s): G47.33 - Obstructive sleep apnea (adult) (pediatric) Category: Medical Plan Reviewed results of sleep study report, results c/w severe sleep apnea. Continue CPAP 8 cmH2O nightly > 4 hours, as pt continues to have good clinical effect from use. Clean CPAP machine and supplies routinely. Change CPAP supplies routinely. Encouraged to use distilled water in CPAP water reservoir Pt to contact us or respiratory company with any questions or concerns. Pt to follow-up in 12 months or sooner prn. Coding Level of Care Code Est Pt Level 3 (49798) Diagnoses Severe obstructive sleep apnea G47.33
[2024-09-23 15:25] VITALS: BMI 40.7
== END 2024-09-23 08:41 | disposition home or self-care (01) ==
PROVIDERS: PCP Family Medicine; Visit Provider Nurse Practitioner Family
DX: G47.33 Obstructive sleep apnea (adult) (pediatric) (principal)
CPT/HCPCS: 99213

== ENCOUNTER → 2024-09-23 08:06 | Outpatient (BNVA) | payer OTHER, SELFPAY | PROVIDERS: PCP Family Medicine; Visit Provider Nurse Practitioner Family ==